=== PATIENT | female | born 1960 | race Caucasian/White ===

== ENCOUNTER 2016-07-14 08:59 | Emergency (ER) | payer BC ==
--- NOTE | 2016-07-14 09:20 | PDOC ---
Ear Complaints HPI - General Chief Complaint: Ear Problem / Injury Stated Complaint: left ear pain, ear bleeding Date Seen by Provider: 07/14/16 Time Seen by Provider: 09:20 Source: POSITIVE: Patient Exam Limitations: POSITIVE: No limitations Nurse's Notes Reviewed & Considered: Yes - History of Present Illness Initial Comments: Patient is a 55-year-old female who presents to the emergency department with primarily left ear pain. Patient reports she was recently camping at [place]. She has had a upper respiratory type infection. Mild cough. Minimally productive. She has had upper drainage with mild sore throat. Patient also reports that she lost her voice. She had increasing left ear pain. Separately felt gurgling in the ear head decreased hearing, and drainage that was bloody from the left ear. She spoke with her primary care provider and was instructed to come to the emergency department for evaluation. No fevers. No chills. Patient denies any chest pain or abdominal pain. The pain in the left ear is better after what sounds like possible rupture. She does have some mild pain in the right ear as well. No exacerbating factors. Mild and overall severity. Achy in nature. - Patient Home Medications Home Medications: Home Medications Clonazepam 2 mg ORAL BID #60 tab 09/22/12 Gabapentin [Neurontin] 3 tab PO DAILY cap 11/28/13 5-Hydroxytryptophan [5-Htp] 50 mg PO DAILY 01/30/15 Albuterol/Ipratropium Inhaler [Combivent Respimat Inhaler] 4 gm IH BID 01/30/15 Ascorbic Acid [Vitamin C] 500 mg PO DAILY 01/30/15 Cholecalciferol (Vitamin D3) [Vitamin D3] 3,000 unit PO DAILY 01/30/15 HYDROcod/Ibuprofen 7.5/200 Tab [Vicoprofen 7.5/200 Tab] 1 tab PO Q6H PRN #60 tab 01/30/15 Multivitamin [Multi-Vitamin Daily] 1 each PO DAILY 01/30/15 Vit B Comp/C/FA/Iron/Vit E [Vitamin B Complex Tablet] 1 each PO DAILY 01/30/15 Buspirone HCl 1 tab PO BID #60 tab 02/28/16 Eluxadoline [Viberzi] Sample #64 02/28/16 Amoxicillin 875 mg PO BID 10 Days 07/14/16 Ofloxacin Otic Soln 0.3% [Floxin Otic Soln 0.3%] 10 drop LEFT EAR DAILY 7 Days 07/14/16 - Patient Allergies Allergies/Adverse Reactions: Allergies Allergy/AdvReac Type Severity Reaction Status Date / Time buspirone HCl [From BuSpar] Allergy Intermediate HEADACHE Verified 07/14/16 09: 25 metformin AdvReac Severe NAUSEA Verified 07/14/16 09:25 bupropion [Bupropion] AdvReac Intermediate headaches Verified 07/14/16 09:25 duloxetine AdvReac Intermediate headaches Verified 07/14/16 09:25 pregabalin [From Lyrica] AdvReac Intermediate edema Verified 07/14/16 09:25 all antidepressants AdvReac Intermediate sinus Uncoded 07/14/16 09:25 headaches Past Medical History - heen HEENT History: Glaucoma Cardiovascular History: Other (please comment) Additional Cardiovasular History: VAGAL EPISODES Respiratory History: Asthma, Other (please comment) Additional Respiratory History: Environmental allergies Gastrointestinal History: Irritable Bowel Syndrome Additional Gastrointestinal History: HEP AN /BAD CRAMPS AND DIARRHEA Genitourinary History: Kidney Stones Endocrine History: Hypothyroidism Additional Endocrine History: Glucose intolerance Musculoskeletal History: Fibromyalgia, Back Pain, Other (please comment) Prosthesis or Implant: No Additional Musculoskeletal History: Chronic fatigue syndrome/LOW IGA/PERIPHERAL NEUROPATHY Neurological History: Denies History Blood Disorders: Anemia Psychiatric History: Depression, Anxiety Disorders, PTSD Additional Psychiatric History: Insomnia History of Sexually Transmitted Diseases: No Female Reproductive History: Hysterectomy Cancer History: Denies History In Past Year Been Physically Harmed or Verbally Threatened: No History of MDRO: No History of Other Communicable Diseases: No Tobacco Use: Never Smoker Alcohol Use: Rarely Substance Use Type: None Previous Surgical History: Yes Type / Date of Surgery: Hysterectomy/Oopherectomy/LAP GODWIN/APPY/FOOT SURGERY/ HAND SURGERY/FISTULA REPAIR ON ABDOMEN/WISDOM TEETH/TONSILLS/COLON POLYPS/COLON ULCER/HERNIA REPAIR/R WRIST CYST AND TUMOR REMOVAL/SCAR TISSUE REMOVED FROM STOMACH/R KNEE SCOPE. Anesthesia Reactions: No Malignant Hyperthermia: No Significant Family History: Heart disease, Cancer, COPD, Diabetes, Hypertension , Renal disease Past Medical History Reviewed: Reviewed - No Changes ROS - Limitations ROS Limitations: No Limitations Constitution: DENIES: Chills, Fever Cardiovascular: REPORTS: Denies Cardiac Symptoms Respiratory: REPORTS: Cough Productive Neurological: REPORTS: Denies Neuro Symptoms Gastrointestinal: REPORTS: Denies GI Symptoms Endocrine: REPORTS: Denies Symptoms Musculoskeletal: REPORTS: Denies MS Symptoms Genitourinary: REPORTS: Denies Symptoms Eyes: REPORTS: Denies Symptoms ENT: REPORTS: Earache, Ear Discharge, Nasal Drainage, Sore Throat Skin: REPORTS: Denies Skin Symptoms Lympathic: REPORTS: Swollen Glands Ear Complaint Exam - General Appearance General Appearance: POSITIVE: Alert, Cooperative, No Acute Distress - HEENT Head / Face: POSITIVE: Atraumatic, Normal Inspection Eyes: POSITIVE: Inspection Normal Ears: POSITIVE: Other (Right ear canal is normal. There does appear to be some fluid behind the tympanic membrane. The membrane is not bulging or erythematous. The left tympanic membrane is obscured by blood. Ear canal is otherwise normal.) Oropharynx: POSITIVE: External Inspection Nml, Pharynx Inspect. Nml, Airway Intact, Other (Hoarse voice) - Respiratory Respiratory: POSITIVE: No Respiratory Distress, Breath Sounds Normal. NEGATIVE : Wheezes, Rales, Rhonchi - Cardiovascular Cardiovascular: POSITIVE: Regular Rate and Rhythm, Heart Sounds Normal - Abdomen Abdomen: Soft: (All Quadrants), Normal Bowel Sounds: (All Quadrants), Denies Tenderness: (All Quadrants) - Skin Skin: POSITIVE: Normal Color - Neurological / Psychological Neurological: POSITIVE: Affect Apporpriate Ear Complaints Progress - Patient's Progress MDM / ED Course: Patient is a 55-year-old female who presents to the emergency department with upper respiratory tract symptoms along with left ear pain and drainage. Her vital signs are unremarkable and examination demonstrates what appears to have been a rupture of the left tympanic membrane, though it is somewhat obscured by blood. With regards to patient's cough she has no hypoxia, and her breath sounds are normal bilaterally, low suspicion for pneumonia. Suspect most likely this is a upper respiratory infection with nasal discharge that is causing cough, sore throat, loss of voice. With regards to her ear pain it does appear clinically that she has a ruptured left tympanic membrane. I suspect that this is from infection. We will start her on oral antibiotics and eardrops and have her follow-up with her primary care provider. If having difficulty healing the left tympanic membrane she may be referred to otolaryngology in the future. Patient Care Time - Estimated PCT Patient Care Time (In Minutes): 10 Vital Signs - Recent Vital Signs Vital Signs: Vital Signs (Last 8 hours) Temp Pulse Resp BP Pulse Ox 07/14/16 09:12 96.6 F L 97 16 139/70 93 - VS Reviewed Vital Signs Reviewed: Yes Discharge Clinical Impression: Otitis media, Ruptured ear drum, URI (upper respiratory infection) Condition: Good Prescriptions / Orders: Amoxicillin 875 mg PO BID 10 Days Ofloxacin Otic Soln 0.3% [Floxin Otic Soln 0.3%] 10 drop LEFT EAR DAILY 7 Days Patient Instructions Given at Discharge: Otitis Media (ED) Additional Instructions: Thank you for coming to the emergency department. Please take your antibiotics as prescribed. It does appear that you have a ruptured eardrum on the left. If you have problems with the healing of this your primary doctor may refer you to see a ENT specialist. Please return to the emergency department or follow- up with your primary care provider for any worsening symptoms. Follow Up With: ADAL GREEN [Primary Care Provider] -
[2016-07-14 09:23] VITALS: RESP 16; TEMP 96.6
== END 2016-07-14 09:47 | disposition home or self-care (01) ==
LOC: ER 08:59
DX: H66.012 Acute suppurative otitis media with spontaneous rupture of ear drum, left ear (principal); J06.9 Acute upper respiratory infection, unspecified; J02.9 Acute pharyngitis, unspecified
CPT/HCPCS: 99282